=== PATIENT | female | born 1975 | race Caucasian/White ===

== ENCOUNTER 2016-04-28 10:00 | Outpatient (RCR) | payer OTHER ==
[2016-04-07 14:54] VITALS: BP 155/93
--- NOTE | 2016-04-07 15:58 | Diagnostic Imaging Report ---
OB ultrasound/biophysical profile. INDICATION: Gestational diabetes. FINDINGS: The heart rate is 125 beats per minute. presentation is cephalic. Amniotic fluid index is 10.1. Placenta is anterior with no placenta previa. The cervix is closed and is 4.8 cm in length. breathing, movement, and posture and tone criteria of biophysical profile are normal with total score of 8 out of 8. IMPRESSION: Biophysical profile score is 8 out of 8. Dictated by: Dictated on workstation # [id number]
[2016-04-13 12:44] VITALS: BP 117/74
--- NOTE | 2016-04-13 13:29 | Diagnostic Imaging Report ---
OB ultrasound. INDICATION: Gestational diabetes. FINDINGS: Cardiac activity is demonstrated based on polysomnographic technologist assessment with no heart rate measurement obtained. The position is vertex. The placenta is anterior with no placenta previa. The cervix is not well seen due to head position. Amniotic fluid index is 10.5 cm. breathing, movement, posture, and tone parameters of biophysical profile are all normal. IMPRESSION: Total biophysical profile score is 8 out of 8. Dictated by: Dictated on workstation # [id number]
[2016-04-21 15:09] VITALS: BP 132/80
--- NOTE | 2016-04-21 16:19 | Diagnostic Imaging Report ---
OB ultrasound dedicated for biophysical profile assessment. INDICATION: Gestational diabetes. FINDINGS: The fetus is in vertex position. The heart rate is 126 beat per minute. Total SEBASTIAN is 6.6 cm. This is decreased compared to the prior exam of 04/13/16. SEBASTIAN of 10.5 cm. Biophysical profile parameter score is 8/8. The placenta is anterior with no placenta previa. IMPRESSION: Biophysical profile total score is 8 out of 8. There is, however, interval decrease in the SEBASTIAN to 6.6 cm, borderline oligohydramnios. Dictated by: Dictated on workstation # [id number]
[~2016-04-28 10:00] MED LIST: DCS100C PO; HCT25T PO; HYDR-3454 PO
--- NOTE | 2016-04-28 13:52 | Diagnostic Imaging Report ---
INDICATION: assessment. FINDINGS: Ultrasonography reveals a alexander intrauterine fetus. cardiac activity is present with a rate of 134 BPM. The amniotic fluid index is 12 cm. There is limb movement and tone. Breathing motion was not documented. IMPRESSION: The biophysical profile score is 6 out of 8 points. breathing motion was not documented during the imaging. Dictated by: Dictated on workstation # [id number]
[2016-05-02] MEDS ORDERED: [UNRECOGNIZED DRUG - CODE] PO (20:27)
[2016-05-02] MEDS ORDERED: LABE100T2 PO (20:27)
[2016-05-03] MEDS ORDERED: IBUP-1773 PO (14:00)
== END 2016-07-06 | disposition home or self-care (01) ==
LOC: RAD 10:00
PROVIDERS: ATTEND Family Medicine
DX: O24.415 Gestational diabetes mellitus in pregnancy, controlled by oral hypoglycemic drugs (principal)
CPT/HCPCS: 59025; 76819

== ENCOUNTER → 2016-07-13 | Outpatient (CLI) | payer SELFPAY ==
[~2016-07-13] MED LIST changes: +IBUP-1773 PO; +LABE100T2 PO; +[UNRECOGNIZED DRUG - CODE] PO
== END ==
LOC: LAB 09:39
PROVIDERS: ATTEND Obstetrics & Gynecology
DX: Z86.32 Personal history of gestational diabetes (principal)
CPT/HCPCS: 36415; 82951; 82952; 82962